=== PATIENT | male | born 1980 | race African-American/Black ===

== ENCOUNTER 2017-11-03 18:55 | Emergency (ER) | payer MEDICAID ==
[~2017-11-03] VITALS: Ht 172.7 cm; Wt 70.0 kg
[2017-11-03] MEDS ORDERED: IBUPROFEN 600MG TABLET PO ONE (20:15)
[2017-11-03] MEDS ORDERED: METHOCARBAMOL 500MG TABLET PO ONE (20:15)
[2017-11-03 20:59] VITALS: BP 135/88
== END 2017-11-03 23:15 | disposition home or self-care (01) ==
LOC: ER 18:55
DX: M54.2 Cervicalgia (principal); R51 Headache; R42 Dizziness and giddiness; V89.2XXA Person injured in unspecified motor-vehicle accident, traffic, initial encounter; Y93.89 Activity, other specified; Y92.89 Other specified places as the place of occurrence of the external cause; Y99.8 Other external cause status
CPT/HCPCS: 70450; 72125; 99284